=== PATIENT | female | born 1980 | race Caucasian/White ===

== ENCOUNTER 2019-07-20 13:31 | Outpatient (CLI) | payer BC ==
--- NOTE | 2019-07-20 13:58 | RAD ---
XR Tib Fib Rt Leg 2 View INDICATION: Slipped and fall with right leg pain FINDINGS: Bones: No acute fracture or subluxation is evident. Enthesopathic changes seen off the posterior and plantar calcaneus. Joints: No acute abnormality. Soft tissues: No radiopaque foreign body is evident. IMPRESSION: No acute osseous abnormality.
--- NOTE | 2019-07-20 14:05 | RAD ---
XR Knee Rt 2 View HISTORY: Injury, right knee pain FINDINGS: No fracture or dislocation is identified.
== END 2019-07-20 13:32 | disposition home or self-care (01) ==
LOC: BICRAD 13:31
PROVIDERS: ATTEND Family Medicine
DX: S89.91XA Unspecified injury of right lower leg, initial encounter (principal)

== ENCOUNTER 2022-02-26 14:56 | Outpatient (CLI) | payer BC | END 2022-02-26 14:57 | disposition home or self-care (01) | LOC: SCSRAD 14:56 | PROVIDERS: ATTEND Internal Medicine Rheumatology | DX: M25.561 Pain in right knee (principal); M25.562 Pain in left knee; M17.0 Bilateral primary osteoarthritis of knee | CPT/HCPCS: 73565 ==

== ENCOUNTER 2023-11-23 19:21 | Emergency (ER) | payer BC ==
[2023-11-23] MEDS ORDERED: Fluorescein Opthalmic Strip ONE (20:20)
[2023-11-23] MEDS ORDERED: Proparacaine 0.5% Opth 15 ML BOT ONE (20:20)
== END 2023-11-23 21:35 | disposition home or self-care (01) ==
LOC: ERS 19:21
DX: S05.02XA Injury of conjunctiva and corneal abrasion without foreign body, left eye, initial encounter (principal); X58.XXXA Exposure to other specified factors, initial encounter
CPT/HCPCS: 99282